=== PATIENT | female | born 1970 | race Caucasian/White ===

== ENCOUNTER → 2016-10-22 | Outpatient (CLI) | payer OTHER | LOC: RAD 07:38 | PROVIDERS: ATTEND Internal Medicine Gastroenterology | DX: R10.13 Epigastric pain (principal) | CPT/HCPCS: 78264; A9541 ==

== ENCOUNTER 2017-11-15 09:24 | Emergency (ER) | payer OTHER ==
--- NOTE | 2017-11-15 09:38 | ER Document Report ---
ED Medical Screen (RME) - General Chief Complaint: Nausea/Vomiting/Diarrhea Stated Complaint: BLOOD IN STOOLS Time Seen by Provider: 11/15/17 09:33 TRAVEL OUTSIDE OF THE [place] IN LAST 30 DAYS: No - HPI Notes: 11/15/17 09:45 24 hour history profuse diarrhea. Took Pepto-Bismol yesterday morning without improvement symptoms. Continued to have watery diarrhea throughout the day. Denies any emesis or nausea. Whenever she eats she just has to go the bathroom. Seen at urgent care today because she continued symptoms. Hemoccult positive there. Patient presents tachycardic heart rate 100. Afebrile but states she had chills last night. Denies abdominal pain or other symptoms. Patient has no history of gastrointestinal disorders. - Related Data Allergies/Adverse Reactions: latex [Latex] Allergy (Intermediate, Verified 11/15/17 09:25) Generalized rash acetaminophen [From Percocet] Adverse Reaction (Verified 11/15/17 09:25) VOMITING hydrocodone bitartrate [From Vicodin] Adverse Reaction (Verified 11/15/17 09:25) VOMITING oxycodone HCl [From Percocet] Adverse Reaction (Verified 11/15/17 09:25) VOMITING propoxyphene napsylate [From Darvocet-N 100] Adverse Reaction (Verified 09:25) VOMITING Past Medical History - Past Medical History Cardiac Medical History: Denies: Hx Coronary Artery Disease, Hx Heart Attack, Hx Hypertension Pulmonary Medical History: Reports: Hx Bronchitis - hx of Denies: Hx Asthma, Hx COPD, Hx Pneumonia Neurological Medical History: Denies: Hx Cerebrovascular Accident, Hx Seizures Musculoskeltal Medical History: Denies Hx Arthritis Past Surgical History: Reports: Hx Gynecologic Surgery - bladder sling. Denies : Hx Hysterectomy - Immunizations Hx Diphtheria, Pertussis, Tetanus Vaccination: Yes Physical Exam - Vital signs Vitals: Temp Pulse Resp BP Pulse Ox 99.0 F 97 24 H 125/79 99 11/15/17 09:29 11/15/17 09:29 11/15/17 09:29 11/15/17 09:29 11/15/17 09:29 Course - Vital Signs Vital signs: Temp Pulse Resp BP Pulse Ox 99.0 F 97 24 H 125/79 99 11/15/17 09:29 11/15/17 09:29 11/15/17 09:29 11/15/17 09:29 11/15/17 09:29 Doctor's Discharge - Discharge Referrals: PATIENCE GREGORY MD [Primary Care Provider] - Follow up as needed
[2017-11-15 10:38] LABS: ABSOLUTE LYMPHOCYTES (AUTO) 1.4 10^3/uL (0.5-4.7); ABSOLUTE MONOCYTES (AUTO) 0.7 10^3/uL (0.1-1.4); BASOPHILS % (AUTO) 0.3 % (0-2); EOSINOPHILS % (AUTO) 0.3 % (0-6); HEMATOCRIT 43.9 % (36.0-47.0); HEMOGLOBIN 15.5 g/dL (12.0-15.5); LYMPHOCYTES % (AUTO) 17.1 % (13-45); MEAN CORPUSCULAR HEMOGLOBIN 33.3 pg (27.0-33.4); MEAN CORPUSCULAR HGB CONC 35.4 g/dL (32.0-36.0); MEAN CORPUSCULAR VOLUME 94 fl (80-97); MONOCYTES % (AUTO) 8.3 % (3-13); PLATELET COUNT 201 10^3/uL (150-450); RED BLOOD COUNT 4.67 10^6/uL (3.72-5.28); RED CELL DISTRIBUTION WIDTH 12.8 % (11.5-14.0); TOTAL CELLS COUNTED % (AUTO) 100 %; WHITE BLOOD COUNT 8.1 10^3/uL (4.0-10.5)
[2017-11-15 10:44] LABS: ANION GAP 14 (5-19); BLOOD UREA NITROGEN 13 mg/dL (7-20); CALCIUM 8.6 mg/dL (8.4-10.2); CARBON DIOXIDE 24 mmol/L (22-30); CHLORIDE 106 mmol/L (98-107); GLUCOSE 89 mg/dL (75-110); POTASSIUM 3.4 mmol/L (3.6-5.0); SODIUM 143.6 mmol/L (137-145)
[2017-11-15] MEDS ORDERED: POTASSIUM CHLORIDE 10 MEQ TABLET.SA PO ONE (10:58)
[2017-11-15] MEDS ORDERED: ONDANSETRON HCL INJ/PF 4 MG/2 ML SDV IV ONE (10:58)
[2017-11-15] MEDS: RINGERS SOLUTION,LACTATED 1,000 ML IV PRN ×2 (11:23→11:26)
--- NOTE | 2017-11-15 14:07 | ER Document Report ---
ED General - General Chief Complaint: Nausea/Vomiting/Diarrhea Stated Complaint: BLOOD IN STOOLS Time Seen by Provider: 11/15/17 09:33 TRAVEL OUTSIDE OF THE [place] IN LAST 30 DAYS: No - HPI Patient complains to provider of: Nausea vomiting diarrhea Notes: Patient coming in for evaluation of nausea vomiting diarrhea. Patient states she was seen on recent urgent care was tolerated a Hemoccult card showing blood in her stool therefore was referred to the ER for further evaluation. Patient states is been ongoing since Wednesday. Patient states last time she had something he did have shrimp and chicken. Patient denies any sick contacts at bedside states that he ate same food that the patient did suffer he had steak and shrimp. Patient denies any recent antibiotics denies any other medical history. Patient otherwise was comfortable upon my evaluation states she has diarrhea since she eats anything. Patient denies any abdominal pain chest pain - Related Data Allergies/Adverse Reactions: latex [Latex] Allergy (Intermediate, Verified 11/15/17 09:25) Generalized rash acetaminophen [From Percocet] Adverse Reaction (Verified 11/15/17 09:25) VOMITING hydrocodone bitartrate [From Vicodin] Adverse Reaction (Verified 11/15/17 09:25) VOMITING oxycodone HCl [From Percocet] Adverse Reaction (Verified 11/15/17 09:25) VOMITING propoxyphene napsylate [From Darvocet-N 100] Adverse Reaction (Verified 09:25) VOMITING Past Medical History - Social History Smoking Status: Never Smoker Frequency of alcohol use: None Drug Abuse: None Family History: Reviewed & Not Pertinent Patient has suicidal ideation: No Patient has homicidal ideation: No - Past Medical History Cardiac Medical History: Denies: Hx Coronary Artery Disease, Hx Heart Attack, Hx Hypertension Pulmonary Medical History: Reports: Hx Bronchitis - hx of Denies: Hx Asthma, Hx COPD, Hx Pneumonia Neurological Medical History: Denies: Hx Cerebrovascular Accident, Hx Seizures Renal/ Medical History: Denies: Hx Peritoneal Dialysis Musculoskeltal Medical History: Denies Hx Arthritis Past Surgical History: Reports: Hx Cholecystectomy, Hx Gynecologic Surgery - bladder sling, Hx Orthopedic Surgery - shoulder, Hx Urinary Tract Surgery - bladder sling. Denies: Hx Hysterectomy - Immunizations Hx Diphtheria, Pertussis, Tetanus Vaccination: Yes Hx Pneumococcal Vaccination: 06/14/11 Review of Systems - Review of Systems Constitutional: No symptoms reported EENT: No symptoms reported Cardiovascular: No symptoms reported Respiratory: No symptoms reported Gastrointestinal: Diarrhea, Nausea, Vomiting Genitourinary: No symptoms reported Female Genitourinary: No symptoms reported Musculoskeletal: No symptoms reported Skin: No symptoms reported Hematologic/Lymphatic: No symptoms reported Neurological/Psychological: No symptoms reported -: Yes All other systems reviewed and negative Physical Exam - Vital signs Vitals: Temp Pulse Resp BP Pulse Ox 99.0 F 97 24 H 125/79 99 11/15/17 09:29 11/15/17 09:29 11/15/17 09:29 11/15/17 09:29 11/15/17 09:29 Interpretation: Normal - General General appearance: Appears well, Alert - HEENT Head: Normocephalic, Atraumatic Eyes: Normal Pupils: PERRL - Respiratory Respiratory status: No respiratory distress Chest status: Nontender Breath sounds: Normal Chest palpation: Normal - Cardiovascular Rhythm: Regular Heart sounds: Normal auscultation Murmur: No - Abdominal Inspection: Normal Distension: No distension Bowel sounds: Normal Tenderness: Nontender Organomegaly: No organomegaly - Rectal Notes: Patient with a bedside commode did produce a stool sample that was brown dark brown no signs or gross blood in stool sample - Back Back: Normal, Nontender - Extremities General upper extremity: Normal inspection, Nontender, Normal color, Normal ROM , Normal temperature General lower extremity: Normal inspection, Nontender, Normal color, Normal ROM , Normal temperature, Normal weight bearing. No: Cleve's sign - Neurological Neuro grossly intact: Yes Cognition: Normal Orientation: AAOx4 [place] Coma Scale Eye Opening: Spontaneous [place] Coma Scale Verbal: Oriented [place] Coma Scale Motor: Obeys Commands [place] Coma Scale Total: 15 Speech: Normal Motor strength normal: LUE, RUE, LLE, RLE Sensory: Normal - Psychological Associated symptoms: Normal affect, Normal mood - Skin Skin Temperature: Warm Skin Moisture: Dry Skin Color: Normal Course - Re-evaluation Re-evalutation: 11/15/17 15:30 CD testing otherwise returned negative hemoglobin hematocrit is otherwise within normal limits. Patient more likely has a gastroenteritis I think more likely viral as the patient does not have a fever at this time and no leukocytosis. Patient was given anti-medics medication for her nausea and vomiting. Stool culture also sent. Discussed the need to place patient any antibiotics at this time. Patient had a bowel movement here in ER he was examined by myself stool dark brown maroon stools no bright red blood no black stool consistent with a massive GI bleed. Patient encouraged follow-up primary care physician return to ER symptoms worsen. - Vital Signs Vital signs: Temp Pulse Resp BP Pulse Ox 98.1 F 50 L 16 127/71 H 87 L 11/15/17 14:24 11/15/17 14:24 11/15/17 14:24 11/15/17 14:24 11/15/17 14:24 - Laboratory Result Diagrams: 11/15/17 09:55 11/15/17 09:55 Laboratory results interpreted by me: 11/15/17 09:55 Potassium 3.4 L Discharge - Discharge Clinical Impression: Nausea vomiting and diarrhea Condition: Good Disposition: HOME, SELF-CARE Instructions: Gastroenterology Additional Instructions: Follow-up with your primary care provider. Your laboratory studies today did not show any signs of significant infection. We will see in your stool down for culture to make sure there is a bacterial cause for your diarrhea. I do believe more likely her diarrhea is more viral please continue to stay hydrated with water and fluids containing lites her lites. Take medications as prescribed Bentyl for abdominal cramps Zofran or Phenergan for nausea you do not have to fill both of these Prescriptions: Promethazine HCl [Phenergan 25 mg Tablet] 25 mg PO Q4HP PRN #30 tablet PRN Reason: Dicyclomine HCl [Bentyl 20 mg Tablet] 20 mg PO QID #30 tablet Ondansetron [Zofran Odt] 4 mg PO Q6 PRN #30 tab.rapdis PRN Reason: For Nausea/Vomiting Forms: Return to Work Referrals: PATIENCE GREGORY MD [NO LOCAL MD] - Follow up as needed
[2017-11-15 14:25] VITALS: BP 127/71
== END 2017-11-15 14:26 | disposition home or self-care (01) ==
LOC: ER 09:24
DX: R11.2 Nausea with vomiting, unspecified (principal); R19.7 Diarrhea, unspecified
CPT/HCPCS: 99284; 96361; 96374; 36415; 87045; 89055; 87205; 85025; 80048; 87493; J2405; J7120

== ENCOUNTER → 2018-05-04 | Outpatient (CLI) | payer OTHER ==
--- NOTE | 2018-05-04 11:47 | RADIOLOGY REPORT (SQ) ---
EXAM DESCRIPTION: MRI LT LOWER JOINT WITHOUT COMPLETED DATE/TIME: 05/04/2018 11:30 am REASON FOR STUDY: S86.012A STRAIN OF LEFT ACHILLES TENDON, INITIAL ENCOUNTER S86.012A STRAIN OF LEF T ACHILLES TENDON, INITIAL ENCOUNTER COMPARISON: None. TECHNIQUE: Left ankle images acquired and stored on PACS. Multiplanar images include fat sensitive s equences as T1, fluid sensitive sequences as FST2/STIR, cartilage sensitive sequences as FSPD, and gr adient echo sequences. LIMITATIONS: None. FINDINGS: BONE MARROW: No alteration of signal to suggest marrow replacement or edema. No occult fra cture. No large osteophytes. EFFUSIONS: Small amount of fluid in knee tibiotalar joint and posterior subtalar joint. There is flu id in the distal tibiofibular joint. OSSEOUS ARTICULATIONS: Normal tibiotalar, subtalar, talonavicular and calcaneocuboid joints. TALAR DOME AND TIBIAL PLAFOND: Normal cartilage. No osteochondral defect. ACHILLES TENDON: Intact without partial or full-thickness tear. No adjacent bursal fluid or edema. TIBIALIS ANTERIOR TENDON: Intact without edema at the 1st MT attachment. TIBIALIS POSTERIOR TENDON: Normal morphology and no edema at the navicular attachment. No tendon bernabe th fluid. FLEXOR HALLUCIS LONGUS AND FLEXOR DIGITORUM TENDONS: Normal morphology and no tendon sheath fluid. No edema of the os trigonum. PERONEUS LONGUS AND BREVIS TENDON: Mild increased intrinsic signal of the peroneus brevis tendon from the lateral malleolus through its insertion. No longitudinal split in the tendon or malalignment. Peroneus longus is intact. Minimal tendon sheath fluid. ATFL, CFL, PTFL: The anterior tibiotalar ligament is not well seen. The anterior talofibular ligamen t is not well seen. Calcaneofibular ligament is small, worrisome for injury. The posterior tibiotalar and fibulotalar ligaments are intact. DELTOID LIGAMENT: Visualized components intact. TARSAL TUNNEL: No masses. No muscle atrophy. SINUS TARSI: No fluid. No reactive marrow edema or erosions. PLANTAR FASCIA: No signal alteration or tear. ADJACENT SOFT TISSUES: Persistent subcutaneous edema in the dorsal lateral left foot OTHER: No other significant finding. IMPRESSION: Anterior tibiotalar and fibulotalar ligaments not well seen, likely torn. Calcaneofibul ar ligament small, likely torn. Mild tendinopathy peroneus brevis tendon Small tibiotalar and posterior subtalar joint effusions. Fluid in the distal tibiofibular joint ante riorly. TECHNICAL DOCUMENTATION: JOB ID: [id number] [email or web address]- All Rights Reserved Reading location - IP/workstation name: [facility]
== END ==
LOC: RAD 10:23
PROVIDERS: ATTEND Podiatrist Foot & Ankle Surgery
DX: S86.012A Strain of left Achilles tendon, initial encounter (principal); X58.XXXA Exposure to other specified factors, initial encounter

== ENCOUNTER → 2018-11-16 | Outpatient (CLI) | payer OTHER ==
--- NOTE | 2018-11-16 11:20 | RADIOLOGY REPORT (SQ) ---
EXAM DESCRIPTION: MRI LT LOWER EXTREMITY WITHOUT COMPLETED DATE/TIME: 11/16/2018 11:04 am REASON FOR STUDY: STRAIN OF ACHILIES TENDON (S86.012A) M66.372 SPONTANEOUS RUPTURE OF FLEXOR TENDON S, LEFT ANKLE AN COMPARISON: 28. TECHNIQUE: The ankle images acquired and stored on PACS. Multiplanar images include fat sensitive se quences as T1, fluid sensitive sequences as FST2/STIR, cartilage sensitive sequences as FSPD, and gra dient echo sequences. LIMITATIONS: None. FINDINGS: BONE MARROW: No alteration of signal to suggest marrow replacement or edema. No occult fra cture. No large osteophytes. EFFUSIONS: No subtalar or tibiotalar effusions. No loose bodies. OSSEOUS ARTICULATIONS: Normal tibiotalar, subtalar, talonavicular and calcaneocuboid joints. TALAR DOME AND TIBIAL PLAFOND: Normal cartilage. No osteochondral defect. ACHILLES TENDON: Intact without partial or full-thickness tear. No adjacent bursal fluid or edema. TIBIALIS ANTERIOR TENDON: Intact without edema at the 1st MT attachment. TIBIALIS POSTERIOR TENDON: Normal morphology and no edema at the navicular attachment. No tendon bernabe th fluid. FLEXOR HALLUCIS LONGUS AND FLEXOR DIGITORUM TENDONS: Normal morphology and no tendon sheath fluid. No edema of the os trigonum. PERONEUS LONGUS AND BREVIS TENDON: Normal morphology and no tendon sheath fluid. No subluxation. ATFL, CFL, PTFL: Anterior talofibular ligament poorly seen. Regional probable scar from prior injury . Other lateral ligaments look normal. DELTOID LIGAMENT: Visualized components intact. TARSAL TUNNEL: No masses. No muscle atrophy. SINUS TARSI: No fluid. No reactive marrow edema or erosions. PLANTAR FASCIA: No signal alteration or tear. ADJACENT SOFT TISSUES: No masses. OTHER: No other significant finding. IMPRESSION: 1. Similar appearance to prior. Evidence of lateral ankle sprain, chronic. No acute abnormality. A chilles tendon intact. TECHNICAL DOCUMENTATION: JOB ID: [id number] [email or web address]- All Rights Reserved Reading location - IP/workstation name: [email or web address]
== END ==
LOC: RAD 10:11
PROVIDERS: ATTEND Podiatrist
DX: M66.372 Spontaneous rupture of flexor tendons, left ankle and foot (principal)

== ENCOUNTER 2018-11-30 08:14 | Emergency (ER) | payer OTHER ==
[2018-11-30 08:19] VITALS: BP 147/71
[2018-11-30] MEDS ORDERED: DIPH/PERTUSS(ACELL)/TETANUS VAC/PF 0.5 ML SYR (>=10YO) IM ONE (09:51)
--- NOTE | 2018-11-30 10:29 | RADIOLOGY REPORT (SQ) ---
EXAM DESCRIPTION: HAND LEFT 3 VIEWS COMPLETED DATE/TIME: 11/30/2018 10:20 am REASON FOR STUDY: bit by pitbull COMPARISON: None. EXAM PARAMETERS: NUMBER OF VIEWS: Three views. TECHNIQUE: AP, lateral and oblique radiographic images acquired of the left hand. LIMITATIONS: None. FINDINGS: MINERALIZATION: Normal. BONES: No acute fracture or dislocation. No worrisome bone lesions. JOINTS: No effusions. SOFT TISSUES: No soft tissue swelling. No foreign body. OTHER: No other significant finding. IMPRESSION: NEGATIVE STUDY OF THE LEFT HAND. NO RADIOGRAPHIC EVIDENCE OF ACUTE INJURY. TECHNICAL DOCUMENTATION: JOB ID: [id number] [employer]- All Rights Reserved Reading location - IP/workstation name: [email or web address]
[2018-11-30] MEDS ORDERED: AMOXICILLIN TR/POT CLAVULANATE 500-125 MG TAB PO ONE (11:00)
--- NOTE | 2018-11-30 17:09 | ER Document Report ---
Entered by AVE SOL SCRIBE 11/30/18 0945 Acting as scribe for:SALOME BROUSSARD DO ED Animal Bite - General Chief Complaint: Dog Bite Stated Complaint: DOG BITE Time Seen by Provider: 11/30/18 09:13 Primary Care Provider: SCOTTY TREJO MD [Primary Care Provider] - Follow up as needed Information source: Patient Notes: 48-year-old female that presents to the emergency department today after a dog bite that occurred just prior to arrival. Patient states the dog is her son's and it is a pit bull. Patient states a friend was knocking on the door, she o pened the door to let the friend in and the dog charged out. The dog attacked the friend and she was attempting to break up the attack when she was bitten. Patient states that the dog will be due for its rabies booster soon but is up-to-date as far she is aware. TRAVEL OUTSIDE OF THE [place] IN LAST 30 DAYS: No - Related Data Allergies/Adverse Reactions: latex [Latex] Allergy (Intermediate, Verified 11/30/18 08:15) Generalized rash acetaminophen [From Percocet] Adverse Reaction (Verified 11/30/18 08:15) VOMITING hydrocodone bitartrate [From Vicodin] Adverse Reaction (Verified 11/30/18 08:15) VOMITING oxycodone HCl [From Percocet] Adverse Reaction (Verified 11/30/18 08:15) VOMITING propoxyphene napsylate [From Darvocet-N 100] Adverse Reaction (Verified 11/30/18 08:15) VOMITING Past Medical History - General Information source: Patient - Social History Smoking Status: Current Every Day Smoker Cigarette use (# per day): Yes Frequency of alcohol use: None Drug Abuse: None Lives with: Family Family History: Reviewed & Not Pertinent Patient has suicidal ideation: No Patient has homicidal ideation: No Pulmonary Medical History: Reports: Hx Bronchitis - hx of Past Surgical History: Reports: Hx Cholecystectomy, Hx Gynecologic Surgery - bladder sling, Hx Orthopedic Surgery - shoulder, left ankle, Hx Urinary Tract Surgery - bladder sling - Immunizations Hx Diphtheria, Pertussis, Tetanus Vaccination: Yes Hx Pneumococcal Vaccination: 06/14/11 Review of Systems - Review of Systems Constitutional: No symptoms reported EENT: No symptoms reported Cardiovascular: No symptoms reported Respiratory: No symptoms reported Gastrointestinal: No symptoms reported Genitourinary: No symptoms reported Female Genitourinary: No symptoms reported Musculoskeletal: No symptoms reported Skin: See HPI, Other - dog bite Hematologic/Lymphatic: No symptoms reported Neurological/Psychological: No symptoms reported -: Yes All other systems reviewed and negative Physical Exam - Vital signs Vitals: Temp Pulse Resp BP Pulse Ox 98.2 F 109 H 20 147/71 H 99 11/30/18 08:18 11/30/18 08:18 11/30/18 08:18 11/30/18 08:18 11/30/18 08:18 - Notes Notes: PHYSICAL EXAM GENERAL: Alert, interacts well. No acute distress. HEAD: Normocephalic, atraumatic. EYES: Pupils equal, round, and reactive to light. Extraocular movements intact. ENT: Oral mucosa moist, tongue midline. NECK: Full range of motion. Supple. Trachea midline. LUNGS: No respiratory distress. HEART: Regular rate and rhythm. No murmurs, gallops, or rubs. ABDOMEN: Soft, non-tender. Non-distended. Bowel sounds present in all 4 quadrants. No guarding, rigidity, or rebound. EXTREMITIES: Moves all 4 extremities spontaneously. NEUROLOGICAL: Alert and oriented x3. Normal speech. PSYCH: Normal affect, normal mood. SKIN: Warm, dry, normal turgor. Puncture wound 2/[address] up the right lateral calf. Second puncture wound 2/[address] up the right anterior tibia. 1cm laceration over the dorsal left arm just proximal to the wrist. Small puncture wound with subcutaneous fat to left proximal wrist. Multiple superficial abrasions over distal radius. Course - Re-evaluation Re-evalutation: 11/30/18 11:01 No gaping lacerations, only puncture wounds, nothing that should be sutured at this time. X-rays did not reveal fracture or foreign body. Tetanus status updated, forestry technician of the dog states that vaccines are up-to-date although they are due for booster soon. No indication for rabies vaccine at this time. Animal control/health department has been contacted. Patient started on Augmentin due to risk of infection from a dog bite to the hand and discharged to home. Placed in Master wrap due to amount of swelling. - Vital Signs Vital signs: Temp Pulse Resp BP Pulse Ox 98.2 F 109 H 20 147/71 H 99 11/30/18 08:18 11/30/18 08:18 11/30/18 08:18 11/30/18 08:18 11/30/18 08:18 Procedures - Immobilization Left wrist Pre-Proc Neuro Vasc Exam: Normal Immobilizer type: Master wrap Performed by: PCT Post-Proc Neuro Vasc Exam: Normal, Unchanged from pre-exam Alignment checked and good: Yes Discharge - Discharge Clinical Impression: Dog bite of left wrist Qualifiers: Encounter type: initial encounter Qualified Code(s): S61.552A - Open bite of left wrist, initial encounter; W54.0XXA - Bitten by dog, initial encounter Dog bite of right calf Qualifiers: Encounter type: initial encounter Qualified Code(s): S81.851A - Open bite, right lower leg, initial encounter; W54.0XXA - Bitten by dog, initial encounter Dog bite of left lower leg Qualifiers: Encounter type: initial encounter Qualified Code(s): S81.852A - Open bite, left lower leg, initial encounter; W54.0XXA - Bitten by dog, initial encounter Left wrist sprain Qualifiers: Encounter type: initial encounter Qualified Code(s): S63.502A - Unspecified sprain of left wrist, initial encounter Condition: Stable Disposition: HOME, SELF-CARE Additional Instructions: Animal Bites Animal bites are often heavily contaminated with bacteria. In spite of thorough cleansing and proper treatment, these wounds frequently become infected. Bite wounds of the hands are especially prone to complications. Bites are dressed, if possible. Large wounds may require suturing after internal cleansing. Because of infection risk, some large wounds must remain unstitched. Your doctor is trained to advise you on the best treatment for your bite. Call the doctor at once if the wound becomes red, swollen, warm, increasingly painful, or if it begins to drain. Danger signs also include red streaks up the involved extremity, swollen glands in the groin or under the arm, or fever and chills. The risk of rabies from domestic animals is very low. Bats, sick animals, and wild animals may expose you to rabies. Because we have the animal you do not need to receive the rabies vaccine today. The health department will inform you if they decide you need to receive the rabies vaccine. Please wash with soap and water once a day and apply topical antibiotic ointment. You may use the Master wrap as needed for comfort. Prescriptions: Amox Tr/Potassium Clavulanate [Augmentin 875-125 Tablet] 1 tab PO BID 7 Days tablet Referrals: SCOTTY TREJO MD [Primary Care Provider] - Follow up as needed I personally performed the services described in the documentation, reviewed and edited the documentation which was dictated to the scribe in my presence, and it accurately records my words and actions.
== END 2018-11-30 11:18 | disposition home or self-care (01) ==
LOC: ER 08:14
DX: S61.552A Open bite of left wrist, initial encounter (principal); S81.851A Open bite, right lower leg, initial encounter; S81.852A Open bite, left lower leg, initial encounter; S63.502A Unspecified sprain of left wrist, initial encounter; W54.0XXA Bitten by dog, initial encounter
CPT/HCPCS: 90471; 90715; 99283

== ENCOUNTER 2019-01-04 06:54 | Day surgery (SDC) | payer OTHER ==
[2019-01-02 10:12] LABS: HEMATOCRIT 42.8 % (36.0-47.0); HEMOGLOBIN 14.8 g/dL (12.0-15.5); MEAN CORPUSCULAR HEMOGLOBIN 32.4 pg (27.0-33.4); MEAN CORPUSCULAR HGB CONC 34.6 g/dL (32.0-36.0); MEAN CORPUSCULAR VOLUME 94 fl (80-97); PLATELET COUNT 179 10^3/uL (150-450); RED BLOOD COUNT 4.58 10^6/uL (3.72-5.28); RED CELL DISTRIBUTION WIDTH 12.4 % (11.5-14.0); WHITE BLOOD COUNT 7.2 10^3/uL (4.0-10.5)
[~2019-01-04 06:54] MED LIST: CEFAZOLIN 1 GM/D5W RTU 1 GM/50 ML RTUPB IV PRN; LACTATED RINGERS 1000 ML IV PRN; LIDOCAINE 0.5% INJ-PF (5 MG/ML) 50 ML SDV SUBCUT PRN; SCOPOLAMINE HYDROBROMIDE 1.5 MG PATCH.TD72 TD PRN
[2019-01-04] MEDS ORDERED: CEFAZOLIN 1 GM/D5W RTU 1 GM/50 ML RTUPB IV ONE (07:02)
[2019-01-04] MEDS ORDERED: SCOPOLAMINE HYDROBROMIDE 1.5 MG PATCH.TD72 ONE (07:08)
[2019-01-04] MEDS ORDERED: KETAMINE HCL INJ 500 MG/10 ML VIAL ONE (08:10)
[2019-01-04] MEDS ORDERED: FENTANYL CITRATE INJ/PF 250 MCG/5 ML AMPULE ONE (08:10)
[2019-01-04] MEDS ORDERED: MIDAZOLAM 2 MG/2 ML INJ ONE (08:10)
[2019-01-04] MEDS ORDERED: PROPOFOL INJ 200 MG/20 ML VIAL IV ONE (08:11)
[2019-01-04] MEDS ORDERED: LIDOCAINE 1%/EPINEPHRINE INJ 20 ML VIAL ONE (08:28)
[2019-01-04] MEDS ORDERED: MICROFIBRILLAR COLLAGEN 1 GM PACK ONE (08:28)
[2019-01-04] MEDS ORDERED: PROMETHAZINE HCL INJ 25 MG/1 ML VIAL IV PRN ×2 (09:20)
[2019-01-04] MEDS ORDERED: MEPERIDINE HCL/PF INJ 25 MG/1 ML DISP.SYRIN IV PRN (09:20)
[2019-01-04] MEDS ORDERED: DIPHENHYDRAMINE HCL 50 MG/ML VIAL IV PRN (09:20)
[2019-01-04] MEDS ORDERED: FENTANYL CITRATE INJ/PF 100 MCG/2 ML AMPUL IV PRN ×3 (09:20)
--- NOTE | 2019-01-04 09:21 | Operative Report ---
Operative Report DATE OF SURGERY: 01/04/19 PREOPERATIVE DIAGNOSIS: Fibroadenoma right breast, 1 o'clock position, 6 cm from nipple POSTOPERATIVE DIAGNOSIS: Same OPERATION: Ultrasound directed open biopsy right breast and excision fibroadenoma SURGEON: JULIA CARBAJAL 1ST BIOMECHANICAL ENGINEER: FATOU GARCIA ANESTHESIA: GA TISSUE REMOVED OR ALTERED: Right breast mass consistent with fibroadenoma COMPLICATIONS: None ESTIMATED BLOOD LOSS: Scant INTRAOPERATIVE FINDINGS: See below PROCEDURE: Patient was seen in preop holding area, right breast marked. She was then taken the main operating room where endotracheal intubation was induced. Patient did require a bougie type stylette to establish the airway with an endotracheal tube which was very anterior. The right arm was abducted, the right arm proximally, chest wall prepped and draped in sterile fashion Surgical plan surgical timeout were conducted. Using ultrasound as a guide, the mass was identified at the deep aspect of the right breast, 11 o'clock position approximately 6 cm from the nipple. The skin was anesthetized 1% plain lidocaine. Approximately 4 cm incision was made over the target tissue. Using ultrasound as a guide, electrocautery was used to dissect the target tissue. We got down to the center of the target lesion as identified by ultrasound. Clip marker was identified. A 2-0 Vicryl suture was placed in the substance of the target tissue, and again using electrocautery we carried the dissection down to the anterior pectoralis fascia. The lumpectomy was excised in its entirety, and examined by ultrasound ex vivo found to contain the target tissue. The specimen was sent to pathology for permanent analysis The cavity in the right breast was examined for bleeding and there was none. Hemostasis felt to have been achieved. The wound was closed with 3-0 Vicryl and Dermabond glue. The physician clerical administrative assistant, Ms. Mccullough, provided assistance during this case by: Assisting retracting tissue, instillation of local anesthesia and closure of skin incisions.
[2019-01-04] MEDS ORDERED: TRAMADOL HCL 50 MG TABLET PO PRN (09:25)
--- NOTE | 2019-01-04 09:25 | Discharge Summary ---
Discharge Summary (SDC) - Discharge Final Diagnosis: fibroadenoma Date of Surgery: 01/04/19 Discharge Date: 01/04/19 Condition: Good Treatment or Instructions: [facility] [address] [place] [address] Care Instructions Following Your Lumpectomy Activities: Resume normal activities when you feel comfortable. It is best to remain as active as possible to speed your recovery. It is common to experience some fatigue after surgery and you may find that short naps are helpful. Avoid strenuous activity such as weight lifting, tennis, etc at your surgical site for two weeks. Perform gentle arm exercises daily and do not favor your operative arm to due increased risk of mobility issues postoperatively. No driving for 7 days after surgery. No swimming, tub baths or soaking in a hot tub for 4 week s. There are no dietary restrictions. Do not smoke as this impairs wound healing. Surgical Site care: You may shower in 24 hours to include washing the wound with soap and water using your hands. Do not scrub the incision. Pat the area dry with a towel. Leave skin glue intact. It will fall off on its own. You do not need to recover the wound although some patients find that they feel more comfortable using a light dressing for a few days to absorb any minimal drainage which may occur. Medications: Take Toradol 10mg one pill by mouth every six hours as needed for pain. Resume all of your normal prescription medications after your surgery unless instructed otherwise. You may experience constipation after surgery while taking pain medications. If using a narcotic on a regular basis, take a stool softener such as Colace twice a day. It is helpful to stay hydrated by drinking lots of fluids. Walking is also helpful and is good exercise after surgery. If you need extra help, use Milk of Magnesia according to the directions on the package. Follow-up: Call our office at to make a follow-up appointment in 10-14 days. Your doctor will call to discuss the pathology report with you as soon as it is available. Concerns: Some bruising may occur and will go away over time. If you have a fever of 101.5 or greater, chills, redness at the incision site, excessive drainage from your wound or severe pain not relieved by pain medication, call your doctor. A physician is available 24 hours a day 7 days a week in addition to regular office hours. If problems arise after normal office hours please call the hospital at . Please call if you have any questions or concerns. Prescriptions: Ketorolac Tromethamine [Toradol 10 mg Tablet] 10 mg PO Q6HP PRN #20 tablet PRN Reason: Referrals: SCOTTY TREJO MD [Primary Care Provider] - Discharge Diet: As Tolerated Discharge Activity: Balance Activity w/Rest, No Lifting/Push/Pulling, Walk Frequently Report the Following to Your Physician Immediately: Increase in Pain, Fever over 101 Degrees, Unusual Bleeding, Redness, Swelling, Warmth, Increased Soreness, Drainage-Foul Smelling
[2019-01-04 11:04] VITALS: BP 124/73
[2019-01-04] MEDS ORDERED: DEXAMETHASONE SOD PHOSPHATE INJ 4 MG/1 ML VIAL ONE (13:50)
[2019-01-04] MEDS ORDERED: SUCCINYLCHOLINE CHLORIDE INJ 200 MG/10 ML VIAL ONE (13:50)
[2019-01-04] MEDS ORDERED: LIDOCAINE 2% INJ-PF (20 MG/ML) 2 ML AMPUL ONE (13:50)
[2019-01-04] MEDS ORDERED: KETOROLAC TROMETHAMINE 60 MG/2 ML SDV ONE (13:50)
[2019-01-04] MEDS ORDERED: METOCLOPRAMIDE HCL INJ/PF 10 MG/2 ML SDV ONE (13:50)
[2019-01-04] MEDS ORDERED: ONDANSETRON HCL INJ/PF 4 MG/2 ML SDV ONE (13:50)
== END 2019-01-04 11:00 | disposition home or self-care (01) ==
LOC: OROUT 06:54
PROVIDERS: ATTEND Surgery
DX: D24.1 Benign neoplasm of right breast (principal)
CPT/HCPCS: 36415; 85027; 81025; 88342 ×2; 88341 ×2; 88307 ×2; 00400; 19301; J2250; J0690; J1100; J1885; J3010; J3490 ×2; J2765; J0330; J2405; J2704; 400